=== PATIENT | male | born 1955 | race Caucasian/White ===

== ENCOUNTER 2016-10-02 12:36 | Observation (INO) | payer OTHER ==
[2016-10-02] MEDS ORDERED: ASPIRIN 81 MG CHEWABLE TABLET PO ONE (13:07)
[2016-10-02] MEDS ORDERED: 0.9% SODIUM CHLORIDE 250ML BAG IV ONE (13:09)
[2016-10-02 13:28] LABS: CREATINE PHOSPHOKINASE 58 U/L (55-170)
[2016-10-02 13:41] LABS: CKMB 0.4 ug/L (0-6)
[2016-10-02 13:42] LABS: TROPONIN I < 0.012 ng/mL (0.00-0.034)
[2016-10-02 13:55] LABS: ANION GAP 11.6 (7-16); CARBON DIOXIDE 26.4 mmol/L (22-30); CREATININE 1.4 mg/dL (0.66-1.25)
[2016-10-02 13:56] LABS: HEMATOCRIT 42.7 % (42.0-52.0); HEMOGLOBIN 13.3 gm/dl (14.0-18.0); MEAN CELL VOLUME 92.6 fl (81-97); MEAN CORPUSCULAR HEMOGLOBIN 28.9 pg (27-33); MEAN CORPUSCULAR HGB CONC 31.1 g/dl (32-36); MEAN PLATELET VOLUME 11.7 fl (7.4-10.4); PLATELET COUNT 134 K/uL (130-400); RED BLOOD COUNT 4.61 M/uL (4.40-5.70); RED CELL DISTRIBUTION WIDTH 16.2 % (11.5-14.5); WHITE BLOOD COUNT W/O DIFF 3.4 K/uL (4.2-12.2)
[2016-10-02 13:57] LABS: PLATELET ESTIMATE NORMAL (NORMAL)
--- NOTE | 2016-10-02 14:50 | Emergency Department Record ---
History of Present Illness - General Chief Complaint: Chest Pain Stated Complaint: CHF Time Seen by Provider: 10/02/16 12:58 Source: Patient, Family Mode of Arrival: Wheelchair Limitations: No limitations - History of Present Illness Initial Comments: pt came in because he has been having intermittant cp since yesterday and he thought his chf and afib might be acting up as he is lightheaded and his bp is low and that is what usually happens Onset/Timin -: Days(s) Onset: During exertion Pain Location: Other Pain Radiation: Other Severity scale (1-10): 4 Quality: Aching, Dull Consistency: Constant Improves With: Rest Worsens With: Exertion, Movement Context: New medications Anginal Symptoms: Nausea - Related Data Home Medications Medication Instructions Recorded Confirmed Last Taken Cyanocobalamin (Vitamin B-12) 500 mcg PO DAILY 09/07/14 02/07/16 10/02/16 [Vitamin B-12] Levothyroxine Sodium [Synthroid] 50 mcg PO DAILYTHY 09/07/14 02/08/16 10/02/16 Multivitamin [Multi-Vitamin Daily] 1 each PO DAILY 09/07/14 02/07/16 10/02/16 Apixaban [Eliquis] 5 mg PO BID 02/07/16 02/07/16 10/02/16 Furosemide [Lasix] 20 mg PO DAILY 02/07/16 02/07/16 10/02/16 Finasteride [Proscar] 5 mg PO 10/02/16 10/02/16 13:10 Previous Rx's Medication Instructions Recorded Magnesium Oxide [Mag Ox] 400 mg PO DAILY #30 tab 09/09/14 Carvedilol [Coreg] 25 mg PO BID #60 tablet 02/08/16 Allergies Allergy/AdvReac Type Severity Reaction Status Date / Time NO KNOWN DRUG ALLERGY Allergy no Uncoded 02/07/16 08:27 allergies Travel Screening - Travel/Exposure Within Last 30 Days Have you traveled within the last 30 days?: No - Travel/Exposure Within Last Year Have you traveled outside the [place] in the last year?: No - Additonal Travel Details Have you been exposed to anyone with a communicable illness?: No - Travel Symptoms Symptom Screening: None Review of Systems Reviewed: No additional complaints except as noted below Constitutional: Reports: As per HPI. Denies: Chills, Fever, Malaise, Night sweats, Weakness, Weight change Eyes: Reports: As per HPI. Denies: Eye discharge, Eye pain, Photophobia, Vision change ENT: Reports: As per HPI. Denies: Congestion, Dental pain, Ear pain, Epistaxis , Hearing loss, Throat pain Respiratory: Reports: As per HPI. Denies: Cough, Dyspnea, Hemoptysis, Stridor, Wheezes Cardiovascular: Reports: As per HPI. Denies: Arrhythmia, Chest pain, Dyspnea on exertion, Edema, Murmurs, Orthopnea, Palpitations, Paroxysmal nocturnal dyspnea, Rheumatic Fever, Syncope Endocrine: Reports: As per HPI. Denies: Fatigue, Heat or cold intolerance, Polydipsia, Polyuria Gastrointestinal: Reports: As per HPI. Denies: Abdominal pain, Constipation, Diarrhea, Hematemesis, Hematochezia, Melena, Nausea, Vomiting Genitourinary: Reports: As per HPI. Denies: Dysuria, Frequency, Hematuria, Incontinence, Retention, Testicular pain, Testicular mass, Urgency Musculoskeletal: Reports: As per HPI. Denies: Arthralgia, Back pain, Gout, Joint swelling, Myalgia, Neck pain Skin: Reports: As per HPI. Denies: Bruising, Change in color, Change in hair/ nails, Lesions, Pruritus, Rash Neurological: Reports: As per HPI. Denies: Abnormal gait, Confusion, Headache, Numbness, Paresthesias, Seizure, Tingling, Tremors, Vertigo, Weakness Psychiatric: Reports: As per HPI. Denies: Anxiety, Auditory hallucinations, Depression, Homicidal thoughts, Suicidal thoughts, Visual hallucinations Hematological/Lymphatic: Reports: As per HPI. Denies: Anemia, Blood Clots, Easy bleeding, Easy bruising, Swollen glands Past Medical History - SOCIAL HISTORY Smoking Status: Never smoker Alcohol Use: None Drug Use: None - RESPIRATORY Hx Respiratory Disorders: No - CARDIOVASCULAR Hx Cardio Disorders: Yes Hx Abnormal EKG: Yes Hx CHF: Yes Hx Irregular Heartbeat: Yes Comment:: afib, cardioversion - NEURO Hx Neuro Disorders: Yes Hx Dizziness: Yes - GI Hx GI Disorders: No - Hx Genitourinary Disorders: No - ENDOCRINE Hx Endocrine Disorders: Yes Hx Thyroid Disease: Yes (hypo) - MUSCULOSKELETAL Hx Musculoskeletal Disorders: Yes Hx Arthritis: Yes (knee) - PSYCH Hx Psych Problems: Yes Hx Anxiety: Yes Hx Depression: Yes - HEMATOLOGY/ONCOLOGY Hx Hematology/Oncology Disorders: No Family Medical History Any Significant Family History?: Yes Hx Cancer: Father Hx Heart Disease: Father Physical Exam - General General Appearance: Alert, Oriented x3, Cooperative, Mild distress - Head Head exam: Normal inspection - Eye Eye exam: Normal appearance, PERRL, EOMI Pupils: Normal accommodation - ENT ENT exam: Normal exam, Mucous membranes moist, Normal external ear exam, Normal orophraynx, TM's normal bilaterally Ear exam: Normal external inspection. negative: External canal tenderness Nasal Exam: Normal inspection. negative: Discharge, Sinus tenderness Mouth exam: Normal external inspection, Tongue normal Teeth exam: Normal inspection. negative: Dental caries Throat exam: Normal inspection. negative: Tonsillar erythema, Tonsillar exudate - Neck Neck exam: Normal inspection, Full ROM. negative: Tenderness - Respiratory Respiratory exam: Normal lung sounds bilaterally. negative: Respiratory distress - Cardiovascular Cardiovascular Exam: Regular rate, Normal rhythm, Normal heart sounds - GI/Abdominal GI/Abdominal exam: Soft, Normal bowel sounds. negative: Tenderness - Rectal Rectal exam: Deferred - exam: Deferred - Extremities Extremities exam: Normal inspection, Full ROM, Normal capillary refill. negative: Tenderness - Back Back exam: Reports: Normal inspection, Full ROM. Denies: Muscle spasm, Rash noted, Tenderness - Neurological Neurological exam: Alert, CN II-XII intact, Normal gait, Oriented X3 - Psychiatric Psychiatric exam: Normal affect, Normal mood - Skin Skin exam: Dry, Intact, Normal color, Warm Course Vital Signs 10/02/16 10/02/16 10/02/16 12:41 13:07 13:39 Temperature 98.4 F Pulse Rate 55 L Pulse Rate [ 52 L 53 L Left] Respiratory 24 12 18 Rate Blood Pressure 72/45 Blood Pressure 93/53 83/45 [Left Arm] Pulse Ox 96 99 99 10/02/16 14:44 Temperature Pulse Rate Pulse Rate [ 50 L Left] Respiratory 14 Rate Blood Pressure Blood Pressure 98/61 [Left Arm] Pulse Ox 99 Medical Decision Making - Management Options MDM Management: Additional Work-up Planned (e.g. ADM/Transfer/OP Study) - Data Complexity MDM Data: Labs Ordered and/or Reviewed, X-Ray Ordered and/or Reviewed, EKG Ordered and/or Reviewed - Lab Data Result diagrams: 10/02/16 13:05 10/02/16 13:05 Lab Results 10/02/16 10/02/16 10/02/16 Range/Units 13:05 13:05 13:05 WBC 3.4 L (4.2-12.2) K/uL Corrected WBC [place] RBC 4.61 (4.40-5.70) M/uL Hgb 13.3 L (14.0-18.0) gm/dl Hct 42.7 (42.0-52.0) % MCV 92.6 (81-97) fl MCH 28.8 (27-33) pg MCHC 31.1 L (32-36) g/dl RDW 16.2 H (11.5-14.5) % Plt Count 134 (130-400) K/uL MPV 11.7 H (7.4-10.4) fl Gran % [place] Neutrophils % (47-80) % Band Neutrophils % [place] Lymphocytes % (16-45) % Monocytes % (0-9) % Eosinophils % [place] Basophils % [place] Metamyelocytes [place] Myelocytes [place] Promyelocytes [place] Nucleated RBCs [place] Differential Comment [place] Hypersegmented Polys [place] Plasma Cells [place] Other Cell Type [place] Toxic Granulation [place] Dohle Bodies [place] Froylan Rods [place] Platelet Estimate [place] RBC Morphology [place] Polychromasia [place] Hypochromasia [place] Poikilocytosis [place] Basophilic Stippling [place] Anisocytosis [place] Microcytosis [place] Macrocytosis [place] Spherocytes [place] Sickle Cells [place] Target Cells [place] Tear Drop Cells [place] Ovalocytes [place] Stomatocytes [place] Helmet Cells [place] Cortez-Pamplico Bodies [place] Rings [place] Nilay Cells [place] Acanthocytes (Spur) [place] Rouleaux [place] Schistocytes [place] Morphology Comment [place] Sodium (136-145) mmol/L Potassium (3.5-5.1) mmol/L Chloride (98-107) mmol/L Carbon Dioxide (22-30) mmol/L Anion Gap (7-16) BUN (9-20) mg/dL Creatinine (0.66-1.25) mg/dL Estimated GFR ml/min Random Glucose (70-110) mg/dL Calcium (8.5-10.1) mg/dL Magnesium 1.7 (1.6-2.3) mg/dL Creatine Kinase 58 (55-170) U/L CK-MB (CK-2) 0.4 (0-6) ug/L Myoglobin 39.6 (0.0-121.0) ng/mL Troponin I < 0.012 (0.00-0.034) ng/mL NT-Pro-B Natriuret Pep 108.00 (<125) pg/mL 10/02/16 10/02/16 Range/Units 13:05 13:05 WBC 3.4 L (4.2-12.2) K/uL Corrected WBC [place] RBC 4.61 (4.40-5.70) M/uL Hgb 13.3 L (14.0-18.0) gm/dl Hct 42.7 (42.0-52.0) % MCV 92.6 (81-97) fl MCH 28.9 (27-33) pg MCHC 31.1 L (32-36) g/dl RDW 16.2 H (11.5-14.5) % Plt Count 134 (130-400) K/uL MPV 11.7 H (7.4-10.4) fl Gran % [place] Neutrophils % 44.0 L (47-80) % Band Neutrophils % [place] Lymphocytes % 39.0 (16-45) % Monocytes % 16.0 H (0-9) % Eosinophils % 1.0 Basophils % [place] Metamyelocytes [place] Myelocytes [place] Promyelocytes [place] Nucleated RBCs [place] Differential Comment [place] Hypersegmented Polys [place] Plasma Cells [place] Other Cell Type [place] Toxic Granulation [place] Dohle Bodies [place] Froylan Rods [place] Platelet Estimate Normal RBC Morphology Normal Polychromasia [place] Hypochromasia [place] Poikilocytosis [place] Basophilic Stippling [place] Anisocytosis [place] Microcytosis [place] Macrocytosis [place] Spherocytes [place] Sickle Cells [place] Target Cells [place] Tear Drop Cells [place] Ovalocytes [place] Stomatocytes [place] Helmet Cells [place] Cortez-Pamplico Bodies [place] Rings [place] Nilay Cells [place] Acanthocytes (Spur) [place] Rouleaux [place] Schistocytes [place] Morphology Comment [place] Sodium 141 (136-145) mmol/L Potassium 4.5 (3.5-5.1) mmol/L Chloride 103 (98-107) mmol/L Carbon Dioxide 26.4 (22-30) mmol/L Anion Gap 11.6 (7-16) BUN 28 H (9-20) mg/dL Creatinine 1.4 H (0.66-1.25) mg/dL Estimated GFR 54 ml/min Random Glucose 109 (70-110) mg/dL Calcium 9.3 (8.5-10.1) mg/dL Magnesium (1.6-2.3) mg/dL Creatine Kinase (55-170) U/L CK-MB (CK-2) (0-6) ug/L Myoglobin (0.0-121.0) ng/mL Troponin I (0.00-0.034) ng/mL NT-Pro-B Natriuret Pep (<125) pg/mL - EKG Data -: EKG Interpreted by Me EKG: No Acute Changes - Radiology Data Radiology results: Report reviewed, Image reviewed Disposition Disposition: Admit Clinical Impression: Chest pain Qualifiers: Chest pain type: unspecified Qualified Code(s): R07.9 - Chest pain, unspecified Hypotension Qualifiers: Hypotension type: unspecified hypotension type Qualified Code(s): I95.9 - Hypotension, unspecified Disposition: Still a Patient at [facility] Decision to Admit: Admit from ER Decision to Admit Date: 10/02/16 Decision to Admit Time: 15:06 Forms: Patient Portal Access
[2016-10-02] MEDS ORDERED: TEMAZEPAM 15 MG CAPSULE PO PRN (16:23)
[2016-10-02] MEDS ORDERED: ACETAMINOPHEN 500 MG TABLET PO PRN (16:23)
[2016-10-02] MEDS: FUROSEMIDE 40 MG TABLET PO SCH (18:57)
[2016-10-02 21:36] LABS: CKMB 0.5 ug/L (0-6)
[2016-10-02 21:37] LABS: TROPONIN I < 0.012 ng/mL (0.00-0.034)
[2016-10-02] MEDS: VALSARTAN PO SCH (22:59)
[2016-10-02] MEDS: AMIODARONE HCL 200 MG TABLET PO SCH (22:59)
[2016-10-02] MEDS: SACUBITRIL PO SCH (22:59)
[2016-10-02] MEDS: RISPERIDONE 1 MG TABLET PO SCH (23:00)
[2016-10-02] MEDS: APIXABAN 5MG TABLET PO SCH (23:01)
[2016-10-02] MEDS: CARVEDILOL 12.5 MG TABLET PO SCH (23:02)
[2016-10-03 05:28] LABS: CKMB 0.6 ug/L (0-6); TROPONIN I < 0.012 ng/mL (0.00-0.034)
[2016-10-03] MEDS: LEVOTHYROXINE SODIUM 50 MCG TABLET PO SCH (06:33)
--- NOTE | 2016-10-03 08:09 | RADIOLOGY REPORT ---
EXAM: CHEST, TWO VIEWS HISTORY: CHEST PAIN FOR THE PAST TWO DAYS. TECHNIQUE: PA and lateral upright views of the chest were obtained. Comparison: 02/07/16 and 09/07/14. FINDINGS: The heart, mediastinum, and pulmonary vasculature are normal. There are no acute infiltrates or effusions. There is no pneumothorax. Degenerative changes are present within the spine. IMPRESSION: NO ACUTE CHEST PATHOLOGY. JOB NUMBER: [id number] MTDD
[2016-10-03] MEDS: CARVEDILOL 12.5 MG TABLET PO SCH ×2 (09:27→22:32)
[2016-10-03] MEDS: APIXABAN 5MG TABLET PO SCH ×2 (09:28→22:37)
[2016-10-03] MEDS: FUROSEMIDE 40 MG TABLET PO SCH (09:29)
[2016-10-03] MEDS: AMIODARONE HCL 200 MG TABLET PO SCH (09:30)
[2016-10-03] MEDS: RISPERIDONE 1 MG TABLET PO SCH ×2 (09:35→22:36)
[2016-10-03] MEDS: SACUBITRIL PO SCH (09:36)
[2016-10-03] MEDS: VALSARTAN PO SCH (09:36)
[2016-10-03] MEDS ORDERED: FUROSEMIDE 20 MG TABLET PO SCH (10:00)
[2016-10-03] MEDS ORDERED: CYANOCOBALAMIN (VITAMIN B-12) 100 MCG TABLET PO SCH (10:00)
[2016-10-03] MEDS ORDERED: FINASTERIDE 5 MG PO SCH (10:00)
[2016-10-03] MEDS ORDERED: MAGNESIUM OXIDE 400 MG TABLET PO SCH (10:00)
[2016-10-03] MEDS ORDERED: FOLIC ACID 1 MG TABLET PO SCH (10:00)
[2016-10-03] MEDS ORDERED: IPRATROPIUM/ALBUTEROL (0.5MG/3MG) NEB INH PRN (15:57)
[2016-10-03] MEDS: IPRATROPIUM/ALBUTEROL (0.5MG/3MG) NEB INH SCH ×2 (16:09→22:10)
--- NOTE | 2016-10-03 17:30 | History and Physical Report ---
DATE OF ADMISSION: 10/03/2016 CHIEF COMPLAINT/HISTORY OF CHIEF COMPLAINT: Chest pain, dizziness, fatigue, and short of breath. This 61-year-old male was seen in the emergency department by Dr. Carrizales and admitted to the hospital for serial cardiac enzymes, serial EKGs, and a cardiology consult with Dr. Pascal, his mobility manager. Initially the pain started yesterday at [employer]. It is kind of left shoulder pain, some pain on and off all week though. He has a history of atrial fib, CHF, which is improved, ejection fraction up to about 45%. Blood pressure is running quite low, 80/52 when he came into the emergency department. He states the pain is usually in the shoulder blade on the left side, and then he becomes short of breath and feels dizzy. Dr. Carrizales's diagnoses: Chest pain, hypotension. Admitted as an observation patient. MEDICAL HISTORY: History of atrial fibrillation and on Eliquis. He is in normal sinus rhythm at this time. 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 I will check to make sure he is still off the alcohol. CHF, hypertension, hypercholesterolemia, hypothyroidism, obstructive sleep apnea, obesity, and history of alcoholism. He has had paroxysmal atrial fibrillation, and a history of nonischemic cardiomyopathy. His mobility manager is Dr. Pascal. He has a history of having an ejection fraction around 25%-30%. He stopped drinking alcohol, ejection fraction went up to 45%. See the consults on 08/10/2016 and 07/25/2016. SURGICAL HISTORY: Knee replacement. He has had the cardioversion for his atrial fibrillation x 4, hypothyroidism, arthritis in the knee, and alcohol use, recently stopping about a month ago. CURRENT MEDICATIONS: On admission: 1. Lasix started 4 days ago, 40 mg twice a day by Micheline Pena, the nurse practitioner with Dr. Early. 2. Risperidone 4 mg 2 times a day for restless legs. 3. Coreg 12.5 b.i.d.; actually, he is on 25 mg b.i.d. 4. Finasteride. 5. Proscar 5 mg daily, a new medication started 1 month ago. Still having frequent urination. 6. Levothyroxine 50 mcg once a day. 7. Mag oxide 400 mg once a day. 8. Amiodarone 200 mg 2 times a day. 9. Eliquis 5 mg b.i.d. 10. Potassium chloride 20 mEq by mouth daily. 11. A new medication called Entresto 24/ combination, the actual medications are sacubitril/valsartan. 12. Folic acid 1 mg daily. 13. Thiamine 250 mg daily. 14. B12 daily. 15. Antabuse, he is no longer taking that. 16. Multiple vitamins. ALLERGIES: No known drug allergies. SOCIAL HISTORY: He never smoked and he used to drink alcohol heavily. He used Antabuse to get off the alcohol, stopped about a month or 2 months ago. FAMILY HISTORY: Father had cancer. Mother and father had heart disease. SYSTEMS REVIEW: No upper respiratory infection symptoms, cough, cold or congestion. Cardiovascular: See chief complaint. He had chest pain mostly in the left scapular area of his back. Respiratory: No cough, col or congestion. Gastrointestinal: No nausea, vomiting, diarrhea, black stools, or bloody stools. Urination: He has had frequent urination, small amounts. Will do a bladder scan to see if he has urinary retention. Musculoskeletal: He has pain in his right knee and also arthritis, and no pain on palpating his back or chest. At this point he is without any chest pain or back pain. Neurologic: No CVA, paralysis or paresthesias. Endocrine: He is obese morbidly. He has hypothyroidism. Integument: No rash, ulcers, changing moles, or yellow skin. PHYSICAL EXAMINATION: VITAL SIGNS: Height is 5 feet 11 inches. Weight is 370 pounds. 97.5, pulse is 56, blood pressure 81/46, respiratory rate is 16, pulse ox is 94% on room air. HEENT: Pupils are equal, round and reactive to light and accommodation. Extraocular muscles are intact. Throat is clear. Nose is clear. Tympanic membranes are chiu. NECK: Supple, no jugular venous distention, no hepatojugular reflux, no carotid bruits. Thyroid is smooth. LUNGS: Clear to auscultation and percussion. HEART: Regular rate and rhythm without murmurs, clicks, rubs, or gallops. ABDOMEN: Soft, nontender, obese, and no hepatosplenomegaly, no masses, no tenderness. Bowel sounds are active. No bruits. EXTREMITIES: Pitting edema but it is mild and chronic, 1+ at this time. BREASTS: Normal male breasts. RECTAL/GENITALIA: Deferred. NEUROLOGIC: Cranial nerves II-XII intact. No gross defect. Sensation normal. Strength normal. deep tendon reflexes are equal bilaterally. Babinski is negative. MENTAL STATUS: Alert and oriented x 3. LABORATORY DATA: His cardiac enzymes x 3 are negative. BUN is 28, creatinine is 1.4. His brain natriuretic peptide is 108. IMAGING: His EKG showing normal sinus rhythm with T-wave inversion in 2, 3, AVF, and no acute changes. Same last night as it is today, this morning. An echo that was done recently showing an ejection fraction of 45%. It was around 25% when he was drinking alcohol. IMPRESSION: 1. History of congestive heart failure, nonischemic cardiomyopathy, probably alcohol induced. Ejection fraction has improved to 45%. 2. Fatigue. 3. Rule out benign prostatic hypertrophy with possible urinary retention. 4. Obesity, morbid. 5. History of alcoholism, stopped a couple months ago. 6. Chest pain, rule out myocardial infarction. Cardiac enzymes have been negative at 3 times points. 7. Fatigue and dizziness. 8. Hypotension, most likely secondary to his medications. PLAN: Dr. Pascal consult. Stopping some of the medications to alleviate the hypotension, stopping the Lasix. Pk Helm, MTDD
[2016-10-04] MEDS: IPRATROPIUM/ALBUTEROL (0.5MG/3MG) NEB INH SCH (06:03)
[2016-10-04] MEDS: LEVOTHYROXINE SODIUM 50 MCG TABLET PO SCH (06:13)
--- NOTE | 2016-10-04 08:52 | Discharge Note ---
VTE H&P Assessment - Risk for VTE Risk for VTE: Yes Risk Level: Moderate Risk Assessment Date: 10/03/16 Risk Assessment Time: 08:00 VTE Orders Placed or Will Be Placed: Yes Discharge Medications - Discharge Medications Prescriptions: Carvedilol [Coreg] 12.5 mg PO BID #60 Furosemide [Lasix] 20 mg PO DAILY #30 Sacubitril/Valsartan [Entresto 49 mg-51 mg Tablet] 1 each PO BID #60 tablet Home Medications: Ambulatory Orders Cyanocobalamin (Vitamin B-12) [Vitamin B-12] 500 mcg PO DAILY 09/07/14 [Last Taken 10/02/16] Levothyroxine Sodium [Synthroid] 50 mcg PO DAILYTHY 09/07/14 [Last Taken ] Multivitamin [Multi-Vitamin Daily] 1 each PO DAILY 09/07/14 [Last Taken 10/02/16 ] Magnesium Oxide [Mag Ox] 400 mg PO DAILY #30 tab 09/09/14 [Last Taken 10/02/16] Apixaban [Eliquis] 5 mg PO BID 02/07/16 [Last Taken 10/02/16] Finasteride [Proscar] 5 mg PO 10/02/16 [Last Taken 10/02/16 13:10] Amiodarone HCl [Pacerone] 200 mg PO DAILY 10/04/16 [Last Taken Unknown] Carvedilol [Coreg] 12.5 mg PO BID #60 10/04/16 [Last Taken Unknown] Cyanocobalamin (Vitamin B-12) [Vitamin B-12] 500 mcg PO DAILY 10/04/16 [Last Taken Unknown] Folic Acid 1 mg PO DAILY 10/04/16 [Last Taken Unknown] Furosemide [Lasix] 20 mg PO DAILY #30 10/04/16 [Last Taken Unknown] Risperidone [Risperadol] 4 mg PO BID 10/04/16 [Last Taken Unknown] Sacubitril/Valsartan [Entresto 49 mg-51 mg Tablet] 1 each PO BID #60 tablet 02/12 [Last Taken Unknown] Discharge Note - Date Date of Discharge Note: 10/04/16 Disposition: Home, Self-Care Condition: (1) Good Additional Instructions: follow up with Dr. Early in 6 days on mondayOctober 10 follow up with Scotty Pascal in one to two weeks at [facility] specialty clinic stop alcohol go to AA to stay off alcohol lasix 20 mg once a day coreg 12.5 mg BID restart the entresto twice a day you have at home Forms: Patient Portal Access Activity at Discharge: Increase Activity as Tolerated Diet at Discharge: Low Salt Diet
[2016-10-04] MEDS ORDERED: CARVEDILOL 12.5 MG TABLET PO SCH (10:00)
--- NOTE | 2016-10-04 12:11 | Discharge Summary ---
DATE OF ADMISSION: 10/02/2016 DATE OF DISCHARGE: 10/04/2016 DISCHARGE DIAGNOSES: 1. Hypotension secondary to Lasix, Coreg, and Entresto. 2. Chest pain, myocardial infarction ruled out by cardiac enzymes and EKGs. 3. Nonischemic cardiomyopathy secondary to alcohol. He was drinking about a week ago a pint of [place] a day for a binge. He has not had any alcohol for about 6 days prior to admission. 4. History of alcoholism. 5. History of fatigue. 6. Possible benign prostatic hyperplasia with frequent urination. We did a bladder scan on him here in the hospital. He only had 32 mL after urinating in his bladder, so he does not have urinary retention. 7. Obesity. ATTENDING PHYSICIAN: Pk Helm DO REASON FOR HOSPITALIZATION: Chest pain, dizziness, fatigue, and short of breath. This 61-year-old male presented to the Emergency Department and was seen by Dr. Carrizales. Admitted to the hospital for serial cardiac enzymes, serial EKGs, and Cardiology consult with Dr. Pascal. Initially, his pain started yesterday at [employer] when he was working. It was more left shoulder pain, and it was in his back on and off for about a week. He was lifting something at [employer]. He has a history of atrial fibrillation, CHF, which has improved. Ejection fraction is about 45%. His CHF is not ischemic cardiomyopathy from alcohol, and he had stopped drinking, but he restarted about a week ago. He was drinking [place], a pint a day, but sometimes more than that he said, but he has not had anything to drink in the last 6 days. Blood pressure was running low initially when he came in to the Emergency Department at 80/52. He was seen by the nurse practitioner in Dr. Early's office, Janneth Pena, about 3 days before because of edema in his legs and abdomen, felt to be secondary to his ischemic cardiomyopathy. Started on Lasix 40 mg twice a day. He diuresed about 7 pounds in 1 day. That may be causing his hypotension. The edema may be caused by the alcohol use 3 or 4 a week prior to the admission. I instructed the patient he needs to not go back to alcohol. He knows that. It is probably difficult for him. I instructed him to follow up with AA for some help in staying off the alcohol. SIGNIFICANT FINDINGS: Cardiac enzymes were negative. EKGs show no acute changes. His brain natriuretic peptide was low at 108. BUN 28. Creatinine 1.4. His WBC is 3400. Hemoglobin was 13.3. Segs are 44. Lymphs were 39. Platelets 134,000. Cardiac enzymes x 3 were negative, both CK-MB and troponin I. EKG reading normal sinus rhythm. T-waves are down in 2, 3, AVF, and second EKG had exactly the same pattern. THERAPY PROVIDED: The patient was admitted to the hospital and given cautious IV fluids. His blood pressure normalized by stopping the Lasix, stopping the Entresto, and stopping the Coreg. Dr. Pascal' consultation, who agreed that it was probably the medication, Lasix, combination of Entresto and Coreg, but mostly the Lasix over-diuresing him. He was self-hydrating himself without an IV, and his blood pressure came up nicely on its own. He was asymptomatic with his low blood pressures of 80/51. Consultation with Dr. Pascal. He was in agreement, probably hypotension secondary to medications Lasix, Entresto, and Coreg. They were all stopped. His blood pressure normalized through the night. He is doing much better. He still has a little congestion and a cough, but he states that is getting better. At this point, I feel it might be a viral upper respiratory infection. His chest x-ray was negative for infiltrates or congestive vascular changes of his CHF. His heart size is normal. CONDITION AT DISCHARGE: Improved. DISCHARGE INSTRUCTIONS: Follow up with Dr. Early in 6 days on 10/10/2016. Followup with Dr. Pascal in 1-2 weeks. Stop the alcohol. Got to AA meetings to stay off the alcohol. Lasix starting tomorrow at 20 mg a day, and going back on the Entresto that he has at home, which is 49/51 one b.i.d., Coreg 12.5 mg daily. The Lasix will be 20 mg once a day. Continue his home medications of cyanocobalamin B12 daily, Eliquis 5 mg b.i.d., levothyroxine 50 mcg daily, multivitamins daily, Mag-Ox 400 mg daily, Proscar 5 mg daily. He is going to be following up with Urology for his frequent urination. Risperdal 4 mg b.i.d., folic acid 1 mg daily. He is also on amiodarone 200 mg daily. Pk Helm DO CC: BILLY EARLY MD, FACP Parker Pascal DO MTDD
== END 2016-10-04 10:15 | disposition home or self-care (01) ==
LOC: ER 12:36 → MEDSURG 15:54 → UNDOADMOB 15:54 → INTOOBSV 15:54 → MEDSURG 16:23 → UNDOADMOB 10-03 18:54 → MEDSURG 10-03 18:54 → UNDODISOB 10-04 10:15
PROVIDERS: ADMIT Family Medicine; ATTEND Family Medicine
DX: R07.89 Other chest pain (principal); I95.2 Hypotension due to drugs; T44.7X5A Adverse effect of beta-adrenoreceptor antagonists, initial encounter; T50.1X5A Adverse effect of loop [high-ceiling] diuretics, initial encounter; T46.5X5A Adverse effect of other antihypertensive drugs, initial encounter; Y92.019 Unspecified place in single-family (private) house as the place of occurrence of the external cause; I42.9 Cardiomyopathy, unspecified; N40.1 Benign prostatic hyperplasia with lower urinary tract symptoms; R35.0 Frequency of micturition; E66.01 Morbid (severe) obesity due to excess calories; R53.83 Other fatigue; Z79.899 Other long term (current) drug therapy; I50.9 Heart failure, unspecified; E78.00 Pure hypercholesterolemia, unspecified; E03.9 Hypothyroidism, unspecified
CPT/HCPCS: 99285 ×2; 82550; 83735; 83874; 82553 ×2; 84484 ×2; 80048; 85027; 83880; 71020; 94640 ×3; 94760; 93005 ×3; 93010 ×3; G0378 ×3; J3490 ×2; 99217; 99220

== ENCOUNTER 2017-09-23 15:43 | Emergency (ER) | payer OTHER ==
--- NOTE | 2017-09-23 15:54 | Emergency Department Record ---
History of Present Illness - General Stated Complaint: FALL/INTOXICATION Time Seen by Provider: 09/23/17 15:44 Source: Patient, Family, EMS Mode of Arrival: Ambulatory Limitations: No limitations - History of Present Illness Initial Comments: 62 yo male presents from a local bar after a fall when he believes he passed out. He was getting into his truck when the event occurred. He admits to drinking. He was stepping up into the truck and then remembers everything going black. He has a history of prior atrial fibrillation on Eliquis according to his records. He and his state he was seen by Dr Pascal recently and was in normal rhythm. The patient was unable to get up off the ground and EMS was called. The patient admits to drinking and clinically demonstrates symptoms of intoxication with mild slurring. He is alert however and states he recalls the events. He states his back and knee hurt. He has had chronic pain in each. He states he has had cardioversions in the past. His PCP is Dr Early. His molder setter is Dr Pascal. Ortho is Dr Figueroa. Complaint: Fall -: Hour(s) (1) Fall From: Standing When Fall Occurred: [address] Fall Witnessed: Yes, by bystander Place Fall Occurred: Other ([facility]) Loss of Consciousness: None Prolonged Down Time?: No Symptoms Prior to Fall: Other (States he "went black") Location: Back, Other (leg) Quality: Aching Context: Alcohol use Associated Symptoms: Denies - Fannie Coma Scale Eye Response: (4) Open spontaneously Motor Response: (6) Obeys commands Verbal Response: (5) Oriented Fannie Total: 15 - Related Data Home Medications Medication Instructions Recorded Confirmed Last Taken Furosemide [Lasix] 20 mg PO DAILY PRN 09/23/17 09/23/17 Unknown Previous Rx's Medication Instructions Recorded Magnesium Oxide [Mag Ox] 400 mg PO DAILY #30 tab 09/09/14 Amiodarone HCl [Pacerone] 200 mg PO DAILY 10/04/16 Carvedilol [Coreg] 12.5 mg PO BID #60 10/04/16 Cyanocobalamin (Vitamin B-12) 500 mcg PO DAILY 10/04/16 [Vitamin B-12] Allergies Allergy/AdvReac Type Severity Reaction Status Date / Time NO KNOWN DRUG ALLERGY Allergy no Uncoded 02/07/16 08:27 allergies Review of Systems Constitutional: Denies: Chills, Fever, Malaise, Weakness Eyes: Denies: Eye discharge ENT: Denies: Congestion, Throat pain Respiratory: Denies: Cough, Dyspnea, Hemoptysis, Stridor, Wheezes Cardiovascular: Reports: Arrhythmia, Palpitations, Syncope. Denies: Chest pain Endocrine: Denies: Fatigue, Polydipsia, Polyuria Gastrointestinal: Denies: Abdominal pain, Diarrhea, Nausea, Vomiting Genitourinary: Denies: Dysuria, Frequency, Hematuria Musculoskeletal: Reports: As per HPI, Arthralgia, Back pain Skin: Reports: Bruising Neurological: Denies: Confusion, Headache, Weakness Psychiatric: Denies: Anxiety Hematological/Lymphatic: Denies: Blood Clots, Easy bleeding, Easy bruising, Swollen glands Past Medical History - SOCIAL HISTORY Smoking Status: Never smoker Drug Use: None - RESPIRATORY Hx Respiratory Disorders: No Hx of CPAP: Yes Comment:: does not use CPAP - CARDIOVASCULAR Hx Cardio Disorders: Yes Hx Abnormal EKG: Yes Hx CHF: Yes Hx Irregular Heartbeat: Yes Comment:: afib, cardioversion - NEURO Hx Neuro Disorders: Yes Hx Dizziness: Yes - GI Hx GI Disorders: No - Hx Genitourinary Disorders: No - ENDOCRINE Hx Endocrine Disorders: Yes Hx Thyroid Disease: Yes (hypo) - MUSCULOSKELETAL Hx Musculoskeletal Disorders: Yes Hx Arthritis: Yes (knee) - PSYCH Hx Psych Problems: Yes Hx Anxiety: Yes Hx Depression: Yes - HEMATOLOGY/ONCOLOGY Hx Hematology/Oncology Disorders: No Family Medical History Hx Alcohol Use: Father, Mother Hx Anxiety: Mother Hx Cancer: Father Hx Dementia: Mother Hx Depression: Mother Hx Diabetes: Brother/Sister Hx Heart Disease: Father *Heart Comment: Father had Afib Hx Stroke: Father Physical Exam - General General Appearance: Alert, Oriented x3 (oriented but admits to alcohol. Mild slurring, emotional), Cooperative, No acute distress - Head Head exam: Atraumatic, Normocephalic, Normal inspection - Eye Eye exam: Normal appearance, PERRL. negative: Conjunctival injection, Scleral icterus - ENT ENT exam: Normal exam, Mucous membranes moist Ear exam: Normal external inspection Nasal Exam: Normal inspection Mouth exam: Normal external inspection Teeth exam: Normal inspection Throat exam: Normal inspection - Neck Neck exam: Normal inspection, Full ROM. negative: Tenderness - Respiratory Respiratory exam: Normal lung sounds bilaterally. negative: Accessory muscle use, Chest wall tenderness, Decreased breath sounds, Prolonged expiratory, Respiratory distress, Rhonchi, Stridor, Wheezes - Cardiovascular Cardiovascular Exam: Irregular rhythm, Tachycardia Peripheral Pulses: 2+: Radial (R), Radial (L) - GI/Abdominal GI/Abdominal exam: Soft. negative: Distended, Tenderness - Rectal Rectal exam: Deferred - exam: Deferred - Extremities Extremities exam: Normal capillary refill. negative: Normal inspection ( abrasion to the right knee) - Back Back exam: Reports: Paraspinal tenderness, Tenderness, Vertebral tenderness. Denies: CVA tenderness (R), CVA tenderness (L) - Neurological Neurological exam: Alert. negative: Motor sensory deficit - Psychiatric Psychiatric exam: Anxious. 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 09/23/17 16:50 The labs were reviewed. CBC with platelet count of 112 CMP was reviewed. Mild increase in LFTs Lactic Acid 3.0 Troponin is normal at 0.01 The patient remains in atrial fib with RVR with noted PVC's Cardizem ordered given his rate Magnesium is low at 1.7 Replacement magnesium ordered Alcohol is elevated at 0.284 09/23/17 16:52 09/23/17 18:[address] scan was negative for acute process The abdominal CT was negative for acute injury. The knee demonstrated a subacute fracture, no acute fracture, effusion noted 09/23/17 18:36 HR improved to 90's on cardizem drip 09/23/17 18:[address] was negative for acute process. Given the syncope, atrial fibrillation with RVR, long QtC, [facility] was contacted given there is no cardiology at [facility]. 09/23/17 18:38 BP is 103/64. Tolerating the cardizem well. 09/23/17 18:46 Jefe Gomez RN of [facility]. Awaiting a call back. 09/23/17 18:46 09/23/17 19:[address] Sanders (IM) and Dr Galeas (Cardiology) of [facility] The patient is accepted for transfer for work up of the syncope, afib, Medical Decision Making - Lab Data Result diagrams: 09/23/17 15:50 09/23/17 15:50 Disposition Disposition: Transfer Clinical Impression: Atrial fibrillation with rapid ventricular response, Prolonged QT interval, PVCs (premature ventricular contractions), Hypomagnesemia, Fall, Low back strain Syncope Qualifiers: Encounter type: initial encounter Alcohol intoxication Qualifiers: Complication of substance-induced condition: with unspecified complication Qualified Code(s): F10.929 - Alcohol use, unspecified with intoxication, unspecified Disposition: Acute Care Hospital Transfer Transfer To: [facility] Reason For Transfer: Afib, syncope, prolonged Qt Accepting Physician: Tommy Time Discussed w/Accepting Physician: 18:46 Condition: (2) Stable Forms: Patient Portal Access Time of Disposition: 18:46 Quality - Quality Measures Quality Measures: N/A - Blood Pressure Screening Does Patient Have Any of the Following: No Blood Pressure Classification: Pre-Hypertensive BP Reading Systolic Measurement: 114 Diastolic Measurement: 86 Screening for High Blood Pressure: < Pre-Hypertensive BP, F/U Documented > [ [id number]] Pre-Hypertensive Follow-up Interventions: Referral to alternative/primary care provider.
[2017-09-23 16:01] LABS: HEMATOCRIT 40.8 % (42.0-52.0); MEAN CELL VOLUME 96.7 fl (81-97); MEAN CORPUSCULAR HEMOGLOBIN 30.8 pg (27-33); MEAN CORPUSCULAR HGB CONC 31.9 g/dl (32-36); MEAN PLATELET VOLUME 11.6 fl (7.4-10.4); PLATELET COUNT 112 K/uL (130-400); RED BLOOD COUNT 4.22 M/uL (4.40-5.70); RED CELL DISTRIBUTION WIDTH 19.9 % (11.5-14.5); WHITE BLOOD COUNT W/O DIFF 4.3 K/uL (4.2-12.2)
[2017-09-23] MEDS ORDERED: SODIUM CHLORIDE 0.9% 500 ML IV ONE (16:03)
[2017-09-23 16:13] LABS: INR 1.1; PARTIAL THROMBOPLASTIN TIME 30.9 SECONDS (24.5-39.1); PROTHROMBIN TIME (PATIENT) 12.2 SECONDS (9.5-12.1)
[2017-09-23 16:14] LABS: BLOOD UREA NITROGEN 16 mg/dL (8-23); CREATININE 0.9 mg/dL (0.7-1.2); EST GLOMERULAR FILTRATION RATE > 60 mL/min
[2017-09-23 16:15] LABS: ALCOHOL 0.284 g/dL (0-0.010); TOTAL PROTEIN 6.9 g/dL (6.6-8.7)
[2017-09-23 16:17] LABS: GLUCOSE,RANDOM 96 mg/dL (74-109)
[2017-09-23 16:19] LABS: ALB/GLOB RATIO 0.9 (1.1-1.8); ALBUMIN 3.2 g/dL (4.0-5.0); ALT/SGPT 29 U/L (<41); AST/SGOT 91 U/L (10.0-50.0)
[2017-09-23 16:20] LABS: ALKALINE PHOSPHATASE 296 U/L (40-129)
[2017-09-23 16:25] LABS: ANISOCYTOSIS 1+; PLATELET ESTIMATE DECREASED (NORMAL)
[2017-09-23] MEDS ORDERED: DILTIAZEM 25MG/5ML VIAL IV ONE (16:38)
[2017-09-23] MEDS ORDERED: DILTIAZEM HCL 125 MG in 0.9 % SODIUM CHLORIDE 100ML 100 ML IV SCH (16:45)
[2017-09-23] MEDS ORDERED: MAGNESIUM SULFATE 16 MEQ in 0.9 % SODIUM CHLORIDE 100ML 100 ML IV ONE (16:52)
[2017-09-23 18:16] LABS: LACTIC ACID 2.7 mmol/L (0.5-2.2)
--- NOTE | 2017-09-25 07:39 | CT SCAN REPORT ---
EXAM: CT OF THE HEAD WITHOUT CONTRAST HISTORY: FALL. INTOXICATED. TECHNIQUE: Routine noncontrast CT imaging of the head were obtained. FINDINGS: The ventricles, basal cisterns, and sulci are prominent consistent with moderate cerebral and cerebellar atrophy. The chiu white differentiation overall is well maintained without evidence for acute ischemia. There is minimal periventricular hypoattenuation suggesting chronic microvascular ischemia. No intracranial mass or hemorrhage. Scattered paranasal sinus mucosal thickening most notable in the maxillary regions. IMPRESSION: 1. NO ACUTE PROCESS. 2. MODERATE CEREBRAL AND CEREBELLAR ATROPHY. 3. CHRONIC MICROVASCULAR ISCHEMIA. 4. SINUSITIS. [facility]: [id number] [facility]
--- NOTE | 2017-09-25 08:15 | CT SCAN REPORT ---
DATE: 09/23/2017. EXAM: CT OF THE ABDOMEN AND PELVIS WITH CONTRAST. HISTORY: Fall. Intoxication. COMPARISON: 01/07/2010. TECHNIQUE: Routine CT images of the abdomen and pelvis obtained following intravenous administration of contrast. Amount and type of contrast in the medical record. FINDINGS: The visualized lung bases are unremarkable. There is cholelithiasis. The liver demonstrates a nodular cirrhosal surface contour compatible with cirrhosis. There is hypertrophy of the caudate lobe. No discrete hepatic mass. The pancreas and adrenals are unremarkable. There is splenomegaly with the spleen measuring 14.8 cm. The kidneys enhance normally with contrast. There are bilateral renal cysts. The exophytic cyst interpolar region on the right is greater than simple fluid density, and solid mass not excluded. This has increased in size compared to previous exam as well. Currently it measures approximately 2.8 x 2.6 cm. Recommend further assessment with ultrasound. There is colonic diverticulosis without CT evidence of diverticulitis. No gastrointestinal wall thickening. The appendix appears normal. The bladder is unremarkable. The aorta enhances normally with contrast. There is evidence for perigastric and splenorenal varices consistent with portal hypertension. No abdominal or pelvic lymphadenopathy. No free air or free fluid. Small, fat-containing ventral wall hernia. No acute osseous abnormality. Dextro curvature of the lumbar spine. IMPRESSION: 1. NO ACUTE PROCESS WITHIN THE ABDOMEN OR PELVIS. 2. HEPATIC CIRRHOSIS. SPLENOMEGALY. EVIDENCE FOR PORTAL VENOUS HYPERTENSION. 3. INDETERMINATE EXOPHYTIC MASS LATERAL RIGHT KIDNEY MEASURING 2.8 CM SIZE RANGE. RECOMMEND FURTHER ASSESSMENT WITH RENAL ULTRASOUND. MASS HAS INCREASED COMPARED TO PREVIOUS EXAM. THIS COULD RELATE TO A HYPERDENSE CYST, THOUGH RECOMMEND ULTRASOUND FOR FURTHER ASSESSMENT. 4. COLONIC DIVERTICULOSIS. 5. OTHER CHRONIC FINDINGS ABOVE. J[facility]BER: [id number] [facility]
--- NOTE | 2017-09-25 08:53 | RADIOLOGY REPORT ---
EXAM: RIGHT KNEE, THREE VIEWS HISTORY: FALL. KNEE PAIN. TECHNIQUE: Three views of the right knee were obtained. Comparison: 12/14/11. FINDINGS: The patient has undergone previous total knee arthroplasty. There is a moderate knee joint effusion. No conclusive evidence for hardware failure. Note is made of a subacute fracture involving the proximal fibular shaft with slight medial displacement. There is cortical thickening and periostitis. There are well corticated calcifications in the medial femoral condyle at the attachment of the MCL, this could relate to a chronic MCL injury. Mild scattered soft tissue swelling. The bones are osteopenic. IMPRESSION: 1. PREVIOUS TOTAL RIGHT KNEE ARTHROPLASTY. NO CLEARLY ACUTE OSSEOUS ABNORMALITY. 2. SUBACUTE FRACTURE PROXIMAL RIGHT FIBULAR SHAFT WITH BONY BRIDGING AND PERIOSTITIS. 3. CHRONIC APPEARING WELL CORTICATED CALCIFICATION MEDIAL FEMORAL CONDYLE AT THE MCL ATTACHMENT SUGGESTING REMOTE INJURY. 4. OSTEOPENIA. 5. MILD TO MODERATE KNEE JOINT EFFUSION. JOB NUMBER: [id number] [facility]
--- NOTE | 2017-09-25 09:12 | CT SCAN REPORT ---
EXAM: CT OF THE CERVICAL SPINE WITHOUT CONTRAST HISTORY: FALL. INTOXICATED. TECHNIQUE: Routine noncontrast CT images of the cervical spine were obtained. FINDINGS: No fracture, subluxation or significant loss of vertebral body height. Moderate degenerative change of the atlantodental joint. Mild scattered degenerative disk disease with disk space narrowing and end plate spurring most pronounced at C4-C5. There is mild dextrocurvature of the cervical spine. The paraspinous soft tissues are unremarkable. The visualized lung apices are clear. IMPRESSION: 1. NO ACUTE CERVICAL SPINE ABNORMALITY. 2. MILD TO MODERATE SPONDYLOSIS. 3. DEXTROCURVATURE OF THE CERVICAL SPINE WHICH MAY BE POSITIONAL. [facility] [id number] [facility]
--- NOTE | 2017-09-25 09:17 | CT SCAN REPORT ---
EXAM: CT OF THE CHEST WITH CONTRAST HISTORY: FALL. INTOXICATED. TECHNIQUE: Routine CT images of the chest were obtained following intravenous administration of contrast. Amount and type of contrast are in the medical record. FINDINGS: The heart is not enlarged. No pericardial effusion. The aorta enhances normally with contrast. No mediastinal or hilar lymph node enlargement. The lungs are free of focal consolidation. There is mild scattered atelectasis. No pleural effusion. There is no acute acute osseous abnormality. Moderate thoracic spondylosis. Old bilateral rib fractures. Degenerative change sternal manubrial joint. The visualized upper abdomen demonstrates hepatic cirrhosis and splenomegaly. Sequela of portal venous hypertension. There is cholelithiasis. Left renal cyst. IMPRESSION: NO ACUTE PROCESS WITHIN THE CHEST. JOB NUMBER: [id number] [facility]
== END 2017-09-23 20:53 | disposition short-term general hospital (02) ==
LOC: ER 15:43
DX: S39.012A Strain of muscle, fascia and tendon of lower back, initial encounter (principal); S80.211A Abrasion, right knee, initial encounter; I48.0 Paroxysmal atrial fibrillation; R55 Syncope and collapse; R07.89 Other chest pain; I49.1 Atrial premature depolarization; M25.561 Pain in right knee; E03.9 Hypothyroidism, unspecified; I50.9 Heart failure, unspecified; E83.42 Hypomagnesemia; F10.929 Alcohol use, unspecified with intoxication, unspecified; Y90.8 Blood alcohol level of 240 mg/100 ml or more; Z79.01 Long term (current) use of anticoagulants; W17.89XA Other fall from one level to another, initial encounter; Y92.511 Restaurant or cafe as the place of occurrence of the external cause
CPT/HCPCS: 99285 ×2; 96365; 96366; 96361; 96368; 83605; 83735; 85730; 85610; 80053; 84484; 85027; 73560; 72125; 71260; 70450; 74177; 93005; 93010; G0480; Q9967; 80320

== ENCOUNTER 2019-03-14 05:58 | Day surgery (SDC) | payer MEDICARE, OTHER ==
[2019-03-14] MEDS ORDERED: HYDRALAZINE 20MG/ML VIAL IV ONE (05:59)
[2019-03-14] MEDS ORDERED: PROPOFOL 10 MG/ML VIAL IV ONE (05:59)
[2019-03-14] MEDS ORDERED: LIDOCAINE 2% MDV (20MG/ML) 20ML VIAL IV ONE (05:59)
[2019-03-14] MEDS ORDERED: 0.9 % SODIUM CHLORIDE 1000ML 500 ML IV ONE (06:45)
[2019-03-14] MEDS ORDERED: NEOM/BACI/POLY/HC 3.5 GM OPTH OINT OPTH ONE (07:45)
[2019-03-14] MEDS ORDERED: BRIMONIDINE TARTRATE 0.2% OPTHALMIC DROPS OP ONE (07:45)
[2019-03-14] MEDS ORDERED: LIDOCAINE 2% MDV (20MG/ML) 20ML VIAL INJ ONE (07:45)
[2019-03-14] MEDS ORDERED: TETRACAINE HCL 0.5% OPTH 2ML SOLU OPTH ONE (07:45)
[2019-03-14] MEDS ORDERED: TIMOLOL MALEATE 0.5% 5ML BTL OPTH ONE (07:45)
[2019-03-14] MEDS ORDERED: EPINEPHRINE 1 MG/ML AMPUL IO ONE (07:45)
[2019-03-14] MEDS ORDERED: TETRACAINE HCL 0.5% 15 ML OPTH BTL OPTH ONE (07:46)
[2019-03-14] MEDS ORDERED: LIDOCAINE 1% MPF 100MG/10ML STERILE-PAK AMPULE SQ ONE (07:47)
[2019-03-14] MEDS ORDERED: CIPROFLOXACIN HCL 0.0015 GM, PHENYLEPHRINE HCL 0.05 GM, KETOROLAC TROMETHAMINE 0.000625 GM MC ONE ×5 (16:30)
--- NOTE | 2019-03-15 08:45 | OP NOTE CHAMES ---
DATE OF PROCEDURE: 03/14/2019 PREOPERATIVE DIAGNOSIS: Nuclear sclerotic cataract, right eye. POSTOPERATIVE DIAGNOSIS: Nuclear sclerotic cataract, right eye. OPERATION: Phacoemulsification of cataractous lens with implantation of intraocular lens. LENS IMPLANT USED: Pedro Pablo & Pedro Pablo Model PCB00 + 17.5 diopters. COMPLICATIONS: None. PROCEDURE IN DETAIL: Following a retrobulbar and facial block, the patient was prepped and draped in the usual fashion for eye surgery. A lid speculum was placed in the right eye after which a 2.4 mm tunnel wound was placed at the temporal limbus and dissected into clear cornea. A paracentesis was placed at 2 oclock hours to the left and right of the initial incision and the chamber deepened with Viscoelastic. The keratome was then used to enter the anterior chamber after which the continuous circular capsulorrhexis was accomplished without difficulty using a bent needle and a Utrata forceps. Hydrodissection and hydrodelineation of the lens was performed after which the nucleus of the lens was removed using the Phaco handpiece in the [id number] technique. The residual cortical material was irrigated and aspirated from the eye after which the bag and chamber were re-examined. The bag was re-inflated with Viscoelastic and the intraocular lens injected into the capsular bag where it centered well. The Viscoelastic was then copiously irrigated and aspirated from the eye after which the temporal tunnel wound and paracentesis were hydrated and the wounds were examined. They were noted to be watertight. The lid speculum was removed from the eye and the eye patched and shielded. The patient was transferred to the recovery room in satisfactory condition and given an appointment to be reexamined in the clinic later today or as directed by Dr. Hernandez. JOB NUMBER: [id number] [facility]
== END 2019-03-14 08:34 | disposition home or self-care (01) ==
LOC: SUR 05:58
PROVIDERS: ATTEND Ophthalmology
DX: H25.11 Age-related nuclear cataract, right eye (principal); R06.02 Shortness of breath; I48.91 Unspecified atrial fibrillation; Z79.01 Long term (current) use of anticoagulants; R60.1 Generalized edema; E03.9 Hypothyroidism, unspecified; E50.9 Vitamin A deficiency, unspecified; I50.9 Heart failure, unspecified
CPT/HCPCS: J0171; J3490; J7030

== ENCOUNTER 2019-03-28 05:53 | Day surgery (SDC) | payer MEDICARE, OTHER ==
[2019-03-28] MEDS ORDERED: LIDOCAINE 2% MDV (20MG/ML) 20ML VIAL IV ONE (05:54)
[2019-03-28] MEDS ORDERED: MIDAZOLAM HCL 2MG/2ML VIAL IV ONE (05:54)
[2019-03-28] MEDS ORDERED: PROPOFOL 10 MG/ML VIAL IV ONE (05:54)
[2019-03-28] MEDS ORDERED: 0.9 % SODIUM CHLORIDE 1000ML 500 ML IV ONE (06:37)
[2019-03-28] MEDS ORDERED: EPINEPHRINE 1 MG/ML AMPUL IO ONE (08:02)
[2019-03-28] MEDS ORDERED: TETRACAINE HCL 0.5% OPTH 2ML SOLU OPTH ONE (08:02)
[2019-03-28] MEDS ORDERED: LIDOCAINE 2% MDV (20MG/ML) 20ML VIAL INJ ONE (08:02)
[2019-03-28] MEDS ORDERED: TIMOLOL MALEATE 0.5% 5ML BTL OPTH ONE (08:03)
[2019-03-28] MEDS ORDERED: NEOM/BACI/POLY/HC 3.5 GM OPTH OINT OPTH ONE (08:03)
[2019-03-28] MEDS ORDERED: LIDOCAINE 1% MPF 100MG/10ML STERILE-PAK AMPULE SQ ONE (08:03)
[2019-03-28] MEDS ORDERED: BRIMONIDINE TARTRATE 0.2% OPTHALMIC DROPS OP ONE (08:03)
[2019-03-28] MEDS ORDERED: TETRACAINE HCL 0.5% 15 ML OPTH BTL OPTH ONE (08:04)
[2019-03-28] MEDS ORDERED: CIPROFLOXACIN HCL 0.0015 GM, PHENYLEPHRINE HCL 0.05 GM, KETOROLAC TROMETHAMINE 0.000625 GM MC ONE ×5 (14:30)
--- NOTE | 2019-04-01 07:21 | OP NOTE CHAMES ---
DATE OF PROCEDURE: 03/28/2019 PREOPERATIVE DIAGNOSIS: Nuclear sclerotic and cortical cataract, left eye. POSTOPERATIVE DIAGNOSIS: Nuclear sclerotic and cortical cataract, left eye. OPERATION: Phacoemulsification of cataractous lens with implantation of intraocular lens. LENS IMPLANT USED: Pedro Pablo & Pedro Pablo Model PCB00 + 18.5 diopters. COMPLICATIONS: None. PROCEDURE IN DETAIL: Following a retrobulbar and facial block, the patient was prepped and draped in the usual fashion for eye surgery. A lid speculum was placed in the left eye after which a 2.4 mm tunnel wound was placed at the temporal limbus and dissected into clear cornea. A paracentesis was placed at 2 oclock hours to the left and right of the initial incision and the chamber deepened with Viscoelastic. The keratome was then used to enter the anterior chamber after which the continuous circular capsulorrhexis was accomplished without difficulty using a bent needle and a Utrata forceps. Hydrodissection and hydrodelineation of the lens was performed after which the nucleus of the lens was removed using the Phaco handpiece in the [id number] technique. The residual cortical material was irrigated and aspirated from the eye after which the bag and chamber were re-examined. The bag was re-inflated with Viscoelastic and the intraocular lens injected into the capsular bag where it centered well. The Viscoelastic was then copiously irrigated and aspirated from the eye after which the temporal tunnel wound and paracentesis were hydrated and the wounds were examined. They were noted to be watertight. The lid speculum was removed from the eye and the eye patched and shielded. The patient was transferred to the recovery room in satisfactory condition and given an appointment to be reexamined in the clinic later today or as directed by Dr. Hernandez. [facility]BER: [id number] [facility]
== END 2019-03-28 09:02 | disposition home or self-care (01) ==
LOC: SUR 05:53
PROVIDERS: ATTEND Ophthalmology
DX: H25.12 Age-related nuclear cataract, left eye (principal); I48.91 Unspecified atrial fibrillation; Z79.01 Long term (current) use of anticoagulants; E03.9 Hypothyroidism, unspecified; E50.9 Vitamin A deficiency, unspecified; I50.9 Heart failure, unspecified; R06.02 Shortness of breath; E66.9 Obesity, unspecified; Z95.810 Presence of automatic (implantable) cardiac defibrillator; Z95.0 Presence of cardiac pacemaker
CPT/HCPCS: J0171; J3490; J7030